=== PATIENT | female | born 1940 | race African-American/Black ===

== ENCOUNTER → 2017-03-11 | Outpatient (CLI) | payer MEDICARE, OTHER ==
[2017-03-11 09:08] LABS: HEMATOCRIT 42.3 % (36.0-47.0); HEMOGLOBIN 13.7 g/dL (12.0-15.5); HGB HCT DIFFERENCE -1.2; MEAN CORPUSCULAR HEMOGLOBIN 21.1 pg (27.0-33.4); MEAN CORPUSCULAR HGB CONC 32.3 g/dL (32.0-36.0); MEAN CORPUSCULAR VOLUME 65 fl (80-97); RED BLOOD COUNT 6.48 10^6/uL (3.72-5.28); RED CELL DISTRIBUTION WIDTH 17.2 % (11.5-14.0); WHITE BLOOD COUNT 5.1 10^3/uL (4.0-10.5)
[2017-03-11 09:40] LABS: BASOPHILS % (MANUAL) 1 % (0-2); EOSINOPHILS % (MANUAL) 5 % (0-6); LYMPHOCYTES % (MANUAL) 36 % (13-45); TOTAL CELLS COUNTED 100
[2017-03-11 09:41] LABS: ANISOCYTOSIS 1+; OVALOCYTES 1+; POIKILOCYTOSIS 1+; TARGET CELLS 3+
[2017-03-11 09:44] LABS: ALANINE AMINOTRANSFERASE 29 U/L (9-52); ALBUMIN 4.7 g/dL (3.5-5.0); ALKALINE PHOSPHATASE 79 U/L (38-126); ANION GAP 12 (5-19); ASPARTATE AMINO TRANSFERASE 23 U/L (14-36); BILIRUBIN,DIRECT 0.4 mg/dL (0.0-0.4); BILIRUBIN,TOTAL 0.7 mg/dL (0.2-1.3); BLOOD UREA NITROGEN 18 mg/dL (7-20); CARBON DIOXIDE 23 mmol/L (22-30); CHLORIDE 107 mmol/L (98-107); Direct HDL 85 mg/dL (>40); GLUCOSE 98 mg/dL (75-110); POTASSIUM 4.6 mmol/L (3.6-5.0); SODIUM 142.3 mmol/L (137-145); TOTAL PROTEIN 8.5 g/dL (6.3-8.2); TRIGLYCERIDES 111 mg/dL (<150)
[2017-03-11 09:59] LABS: CHOLESTEROL 334.68 mg/dL (0-200)
[2017-03-11 10:04] LABS: DIRECT LDL 171 mg/dL (<100)
== END ==
LOC: OD 08:29
PROVIDERS: ATTEND Family Medicine Geriatric Medicine
DX: E78.5 Hyperlipidemia, unspecified (principal); I10 Essential (primary) hypertension; E55.9 Vitamin D deficiency, unspecified; Z79.899 Other long term (current) drug therapy
CPT/HCPCS: 36415; 80053; 80061; 82306; 84443; 85025

== ENCOUNTER → 2017-09-21 | Outpatient (CLI) | payer MEDICARE, OTHER ==
[2017-09-21 10:32] LABS: ALANINE AMINOTRANSFERASE 19 U/L (9-52); ASPARTATE AMINO TRANSFERASE 18 U/L (14-36); CHOLESTEROL 301.54 mg/dL (0-200); TRIGLYCERIDES 86 mg/dL (<150)
[2017-09-21 10:43] LABS: DIRECT LDL 164 mg/dL (<100)
== END ==
LOC: OD 09:21
PROVIDERS: ATTEND Family Medicine Geriatric Medicine
DX: E78.5 Hyperlipidemia, unspecified (principal); Z79.899 Other long term (current) drug therapy
CPT/HCPCS: 36415; 80061; 84450; 84460

== ENCOUNTER → 2018-07-24 | Outpatient (CLI) | payer MEDICARE, OTHER ==
[2018-07-24 08:33] LABS: HEMOGLOBIN 12.9 g/dL (12.0-15.5); MEAN CORPUSCULAR HEMOGLOBIN 20.6 pg (27.0-33.4); MEAN CORPUSCULAR HGB CONC 32.1 g/dL (32.0-36.0); PLATELET COUNT 234 10^3/uL (150-450); RED BLOOD COUNT 6.24 10^6/uL (3.72-5.28); RED CELL DISTRIBUTION WIDTH 18.2 % (11.5-14.0); WHITE BLOOD COUNT 5.3 10^3/uL (4.0-10.5)
[2018-07-24 08:49] LABS: ALANINE AMINOTRANSFERASE 16 U/L (9-52); ANION GAP 8 (5-19); BLOOD UREA NITROGEN 32 mg/dL (7-20); CALCIUM 9.8 mg/dL (8.4-10.2); CARBON DIOXIDE 30 mmol/L (22-30); CHLORIDE 104 mmol/L (98-107); CHOLESTEROL 313.47 mg/dL (0-200); GLUCOSE 93 mg/dL (75-110); POTASSIUM 3.9 mmol/L (3.6-5.0); TRIGLYCERIDES 95 mg/dL (<150)
[2018-07-24 08:51] LABS: MEAN CORPUSCULAR VOLUME 64 fl (80-97)
[2018-07-24 08:56] LABS: ABSOLUTE LYMPHOCYTES# (MANUAL) 1.5 10^3/uL (0.5-4.7); ABSOLUTE MONOCYTES # (MANUAL) 0.3 10^3/uL (0.1-1.4); ABSOLUTE NEUTROPHILS# (MANUAL) 3.2 10^3/uL (1.7-8.2); BASOPHILS % (MANUAL) 1 % (0-2); EOSINOPHILS % (MANUAL) 4 % (0-6); LYMPHOCYTES % (MANUAL) 24 % (13-45); MONOCYTES % (MANUAL) 6 % (3-13); SEGMENTED NEUTROPHILS % (MAN) 61 % (42-78); TOTAL CELLS COUNTED 100
[2018-07-24 08:58] LABS: OVALOCYTES SLIGHT; PLATELET COMMENT ADEQUATE; POIKILOCYTOSIS 2+; TARGET CELLS 2+
[2018-07-24 09:00] LABS: DIRECT LDL 162 mg/dL (<100)
[2018-07-26 10:34] LABS: PATH REVIEW PATHOLOGIST REVIEWED
== END ==
LOC: OD 07:31
PROVIDERS: ATTEND Family Medicine Geriatric Medicine
DX: I10 Essential (primary) hypertension (principal); E78.5 Hyperlipidemia, unspecified
CPT/HCPCS: 36415; 80048; 80061; 84460; 85025

== ENCOUNTER → 2018-11-20 | Outpatient (CLI) | payer MEDICARE, OTHER ==
--- NOTE | 2018-11-20 17:16 | XCELERA REPORT ---
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 No by doppler. Not all 3 cusps are visualised. the LC cusps was faintly seen but not suspicious of any vegetation. PV was not seen. TV was also not well seen but no high degree suspicion of vegetation. The AML of the MV showed a small calcified vegetation, of unknown significance. Asymmetric hypertrophy of the LV involving the IVS, with no significant LVOT gradient. LV overall is hyperdynamic. All except one segment was visualized. LVEF is 70-75% AND there is LV diastolic dysfunction stage I. R heart was not adequately examined due to poor apical 4 chamber view, but no doppler evidence of pulm hypertension from dopper sampling. MMode/2D Measurements & Calculations RVDd: 3.1 cm LVIDd: 4.6 cm FS: 42.5 % Ao root diam: 2.6 cm IVSd: 1.2 cm LVIDs: 2.6 cm EDV(Teich): 97.3 ml LVPWd: 1.2 cm ESV(Teich): 25.7 ml Ao root area: 5.4 cm2 LA dimension: 3.3 cm EF(Teich): 73.6 % Doppler Measurements & Calculations MV E max erika: MV P1/2t max erika: Ao V2 max: AI max erika: 57.2 cm/sec 82.5 cm/sec 122.7 cm/sec 445.8 cm/sec MV A max erika: MV P1/2t: 104.4 msec Ao max PG: AI max P.4 cm/sec MVA(P1/2t): 2.1 cm2 6.0 mmHg 79.5 mmHg MV E/A: 0.77 MV dec slope: AI dec slope: 168.3 cm/sec2 231.6 cm/sec2 AI P1/2t: MV dec time: 775.9 msec 0.33 sec LV V1 max PG: PA V2 max: TR max erika: AV P1/2t-pr_phl: 5.7 mmHg 73.5 cm/sec 260.6 cm/sec 775.9 msec LV V1 max: PA max P.2 mmHg TR max P.1 cm/sec 27.2 mmHg MV P1/2t-pr_phl: 104.4 msec Left Ventricle The left ventricle is normal in size. There is moderate asymmetric left ventricular hypertrophy. IVS 16 mm, PW 12 mm in diastole. The left ventricular ejection fraction is normal. LV EF is 70-75%. Doppler measurements suggest impaired left ventricular relaxation, which is associated with grade I/IV or mild diastolic dysfunction. Not all wall segments were well visualized. No regional wall motion abnormalities noted. There is no thrombus. Right Ventricle The right ventricle is normal in size, thickness and function. The right ventricular systolic function is normal. Atria The right atrium is normal. The left atrial size is normal. LA m-mode dimension 35 mm. Mitral Valve There is mild mitral annular calcification. There is no evidence of mitral valve prolapse. calcified vegetation 0.61 mm on AML of MV on apical 4 chamber view. There is no mitral valve stenosis. There is a trace amount of mitral regurgitation. Aortic Valve The aortic valve opens well. The aortic valve is trileaflet. The aortic valve is sclerotic, but shows no functional abnormality. There is no aortic valvular vegetation. There is no aortic valve stenosis. There is a moderate amount of aortic regurgitation. Tricuspid Valve The tricuspid valve is not well visualized, but is grossly normal. Great Vessels The aortic root is normal size. I WMSI = 1.00 % Normal = 100 Segments Size X - Cannot 2 - 4 - 1-2 small Interpret 1 - Normal Hypokinetic 3 - AkineticDyskinetic 3-5 moderate 5 - 6-14 large Aneurysmal 15-16 diffuse : BEVERLY HOLT > Denilson Uribe
== END ==
LOC: RAD 07:39
PROVIDERS: ATTEND Family Medicine Geriatric Medicine
DX: I38 Endocarditis, valve unspecified (principal)
CPT/HCPCS: 93306

== ENCOUNTER → 2019-01-08 | Outpatient (CLI) | payer MEDICARE, OTHER ==
[2019-01-08 08:50] LABS: HEMATOCRIT 37.6 % (36.0-47.0); HEMOGLOBIN 12.4 g/dL (12.0-15.5); MEAN CORPUSCULAR HEMOGLOBIN 21.6 pg (27.0-33.4); MEAN CORPUSCULAR HGB CONC 33.1 g/dL (32.0-36.0); MEAN CORPUSCULAR VOLUME 65 fl (80-97); PLATELET COUNT 204 10^3/uL (150-450); RED BLOOD COUNT 5.76 10^6/uL (3.72-5.28); RED CELL DISTRIBUTION WIDTH 17.2 % (11.5-14.0); WHITE BLOOD COUNT 4.7 10^3/uL (4.0-10.5)
[2019-01-08 09:07] LABS: ALANINE AMINOTRANSFERASE 13 U/L (9-52); CHOLESTEROL 300.13 mg/dL (0-200); TRIGLYCERIDES 77 mg/dL (<150)
[2019-01-08 09:15] LABS: ANION GAP 8 (5-19); BLOOD UREA NITROGEN 32 mg/dL (7-20); CALCIUM 9.7 mg/dL (8.4-10.2); CARBON DIOXIDE 29 mmol/L (22-30); CHLORIDE 105 mmol/L (98-107); GLUCOSE 83 mg/dL (75-110); SODIUM 142.2 mmol/L (137-145)
[2019-01-08 09:18] LABS: DIRECT LDL 137 mg/dL (<100)
[2019-01-08 09:23] LABS: ABSOLUTE LYMPHOCYTES# (MANUAL) 1.9 10^3/uL (0.5-4.7); ABSOLUTE MONOCYTES # (MANUAL) 0.5 10^3/uL (0.1-1.4); ABSOLUTE NEUTROPHILS# (MANUAL) 2.2 10^3/uL (1.7-8.2); BASOPHILS % (MANUAL) 0 % (0-2); EOSINOPHILS % (MANUAL) 3 % (0-6); LYMPHOCYTES % (MANUAL) 36 % (13-45); MONOCYTES % (MANUAL) 10 % (3-13); SEGMENTED NEUTROPHILS % (MAN) 47 % (42-78); TOTAL CELLS COUNTED 100
[2019-01-08 09:24] LABS: ANISOCYTOSIS 1+; HYPOCHROMASIA 2+; OVALOCYTES SLIGHT; PLATELET COMMENT ADEQUATE; POIKILOCYTOSIS SLIGHT; TARGET CELLS 2+
== END ==
LOC: OD 08:07
PROVIDERS: ATTEND Family Medicine Geriatric Medicine
DX: E78.5 Hyperlipidemia, unspecified (principal); I12.9 Hypertensive chronic kidney disease with stage 1 through stage 4 chronic kidney disease, or unspecified chronic kidney disease; N18.3 Chronic kidney disease, stage 3 (moderate); E55.9 Vitamin D deficiency, unspecified; Z79.899 Other long term (current) drug therapy
CPT/HCPCS: 36415; 80048; 80061; 82306; 84460; 85025

== ENCOUNTER → 2019-02-15 | Outpatient (CLI) | payer MEDICARE, OTHER ==
[2019-02-15 11:17] LABS: ALANINE AMINOTRANSFERASE 12 U/L (9-52); CHOLESTEROL 293.27 mg/dL (0-200); TRIGLYCERIDES 104 mg/dL (<150)
[2019-02-15 11:28] LABS: DIRECT LDL 139 mg/dL (<100)
== END ==
LOC: OD 09:51
PROVIDERS: ATTEND Family Medicine Geriatric Medicine
DX: E78.5 Hyperlipidemia, unspecified (principal); Z79.899 Other long term (current) drug therapy
CPT/HCPCS: 36415; 80061; 84460

== ENCOUNTER → 2019-10-08 | Outpatient (CLI) | payer MEDICARE, OTHER ==
[2019-10-08 10:36] LABS: ALBUMIN 4.1 g/dL (3.5-5.0); ALKALINE PHOSPHATASE 71 U/L (38-126); ANION GAP 11 (5-19); ASPARTATE AMINO TRANSFERASE 19 U/L (14-36); BILIRUBIN,DIRECT 0.3 mg/dL (0.0-0.4); BILIRUBIN,TOTAL 0.6 mg/dL (0.2-1.3); BLOOD UREA NITROGEN 18 mg/dL (7-20); CALCIUM 9.4 mg/dL (8.4-10.2); CARBON DIOXIDE 27 mmol/L (22-30); CHLORIDE 105 mmol/L (98-107); CHOLESTEROL 273.58 mg/dL (0-200); GLUCOSE 83 mg/dL (75-110); POTASSIUM 4.1 mmol/L (3.6-5.0); TRIGLYCERIDES 94 mg/dL (<150)
[2019-10-08 10:47] LABS: DIRECT LDL 134 mg/dL (<100)
== END ==
LOC: OD 08:13
PROVIDERS: ATTEND Family Medicine Geriatric Medicine
DX: I10 Essential (primary) hypertension (principal); E78.5 Hyperlipidemia, unspecified; Z79.899 Other long term (current) drug therapy
CPT/HCPCS: 36415; 80053; 80061

== ENCOUNTER → 2020-01-08 | Outpatient (CLI) | payer MEDICARE, OTHER ==
[2020-01-08 09:06] LABS: ANION GAP 7 (5-19); BLOOD UREA NITROGEN 16 mg/dL (7-20); CALCIUM 9.3 mg/dL (8.4-10.2); CARBON DIOXIDE 28 mmol/L (22-30); CHLORIDE 105 mmol/L (98-107); CHOLESTEROL 173.79 mg/dL (0-200); GLUCOSE 99 mg/dL (75-110); POTASSIUM 3.4 mmol/L (3.6-5.0); TRIGLYCERIDES 73 mg/dL (<150)
[2020-01-08 09:17] LABS: DIRECT LDL 75 mg/dL (<100)
== END ==
LOC: OD 08:04
PROVIDERS: ATTEND Family Medicine Geriatric Medicine
DX: I10 Essential (primary) hypertension (principal); E78.5 Hyperlipidemia, unspecified; Z79.899 Other long term (current) drug therapy
CPT/HCPCS: 36415; 80048; 80061; 84460